=== PATIENT | male | born 1985 | race African-American/Black ===

== ENCOUNTER 2022-07-19 13:17 | Inpatient (IN) | payer OTHER ==
[~2022-07-19] VITALS: Ht 193 cm; Wt 171.9 kg
[2022-07-19] MEDS ORDERED: DIATRIZOATE MEGL/DIATRIZOA SOD 30 ML BTL PO ONE (14:15)
[2022-07-19] MEDS ORDERED: HYDROCHLOROTHIA25 MG PO (14:51)
[2022-07-19] MEDS ORDERED: AMLODIPINE BESY10 MG PO (14:51)
[2022-07-19] MEDS ORDERED: ZESTRIL10 MG PO (14:51)
[2022-07-19] MEDS ORDERED: POTASSIUM CHLORIDE 20 MEQ TAB CR PO STA (14:56)
[2022-07-19] MEDS ORDERED: HYDRALAZINE HCL 20 MG/ML VIAL IV ONE ×2 (15:00→16:30)
[2022-07-19] MEDS ORDERED: HYDRALAZINE HCL 20 MG/ML VIAL ONE (15:11)
[2022-07-19] MEDS ORDERED: POTASSIUM CHLORIDE 20 MEQ TAB CR PO ONE (15:11)
[2022-07-19] MEDS ORDERED: CYCLOBENZAPRINE5 MG PO (16:47)
[2022-07-19] MEDS ORDERED: AMLODIPINE BESYLATE 10 MG TAB ONE (17:28)
[2022-07-19] MEDS ORDERED: AMLODIPINE BESYLATE 10 MG TAB PO ONE (17:30)
[2022-07-19] MEDS ORDERED: NICARDIPINE 20MG/200ML PREMIX 200 ML ONE (18:03)
[2022-07-19] MEDS: NICARDIPINE 20MG/200ML PREMIX 200 ML IV SCH ×5 (18:13→23:00)
[2022-07-19] MEDS ORDERED: SODIUM CHLORIDE FLUSH 10 ML SYR INJ PRN (18:15)
[2022-07-19] MEDS ORDERED: ONDANSETRON HCL INJ 2MG/ML 2ML 2 MG/ML VIAL IV PRN (22:15)
[2022-07-19] MEDS ORDERED: ACETAMINOPHEN 325 MG TAB PO PRN (22:15)
[2022-07-19 23:30] VITALS: BP 155/92
[2022-07-19 23:38] LABS: CREATINE KINASE MB 2.7 ng/mL (0-5.0)
[2022-07-19 23:45] VITALS: BP 143/75
[2022-07-20] VITALS (64 sets, daily range): BP systolic 114–222; BP diastolic 66–145
[2022-07-20] MEDS: NICARDIPINE 20MG/200ML PREMIX 200 ML IV SCH ×6 (00:38→10:44)
[2022-07-20 05:01] LABS: BASOPHILS % 0.3 % (0.0-1.0); EOSINOPHILS # (AUTO) 0.1 (0.0-0.4); HEMATOCRIT 36.8 % (38.2-49.6); HEMOGLOBIN 12.4 g/dL (14.0-18.0); LYMPHOCYTES # (AUTO) 1.5 (1.0-3.2); MEAN CORPUSCULAR HEMOGLOBIN 29.3 pg (28-32); MEAN CORPUSCULAR HGB CONC 33.7 g/dL (31-35); MONOCYTES # (AUTO) 0.5 (0.2-0.8); NEUTROPHILS % 69.3 % (38.7-80.0); PLATELET COUNT 312 x10e3/uL (140-360); RED BLOOD COUNT 4.23 x10e6/uL (4.3-5.7)
[2022-07-20 05:19] LABS: ALBUMIN 3.2 g/dL (3.5-5.0); ALBUMIN/GLOBULIN RATIO 0.9 (0.8-2.0); ANION GAP 12.7 mmol/L (8-16); CREATININE, SERUM 1.01 mg/dL (0.72-1.25)
[2022-07-20 05:25] LABS: POTASSIUM 2.7 mmol/L (3.5-5.1)
[2022-07-20 06:10] LABS: CREATINE KINASE MB 2.5 ng/mL (0-5.0)
[2022-07-20] MEDS: LISINOPRIL 10 MG TAB PO SCH (08:30)
[2022-07-20] MEDS: POTASSIUM CHLORIDE 20 MEQ TAB CR PO SCH ×2 (08:30→10:46)
[2022-07-20] MEDS ORDERED: SPIRONOLACTONE 25 MG TAB PO SCH (09:00)
[2022-07-20] MEDS ORDERED: AMLODIPINE BESYLATE 10 MG TAB PO SCH (09:00)
[2022-07-20] MEDS: CARVEDILOL 12.5 MG TAB PO SCH ×2 (10:45→17:17)
[2022-07-20 14:10] LABS: MAGNESIUM 1.9 MG/DL (1.3-2.1); PHOSPHORUS 2.9 MG/DL (2.3-4.7)
[2022-07-20 14:24] LABS: CREATINE KINASE MB 2.4 ng/mL (0-5.0)
[2022-07-20] MEDS: KCL 20MEQ/.9 SOD CHL 1,000 ML IV SCH (14:38)
[2022-07-20] MEDS: POTASSIUM CHLORIDE 20MEQ/100ML 100 ML IV SCH ×2 (14:38→16:26)
[2022-07-20 16:57] LABS: CLARITY,URINE SL CLOUDY (CLEAR); COLOR,URINE YELLOW (YELLOW); KETONES,URINE NEGATIVE (NEGATIVE); LEUKOCYTE ESTERASE ,URINE NEGATIVE (NEGATIVE); NITRITE,URINE NEGATIVE (NEGATIVE); PROTEIN,URINE DIPSTICK NEGATIVE (NEGATIVE); URINE UROBILINOGEN >=8 mg/dL (0.2 - 1)
[2022-07-20 17:05] LABS: WBC,URINE (MAN) 0-5 /HPF (0-5)
[2022-07-20 17:37] LABS: CREATININE,URINE RANDOM 62.49 mg/dL (63-166); TOTAL PROTEIN, URINE 7.2 mg/dL (1-14)
[2022-07-20] MEDS: NIFEDIPINE CR 30 MG TAB PO SCH (20:35)
[2022-07-21] VITALS (28 sets, daily range): BP systolic 122–163; BP diastolic 73–110
[2022-07-21] MEDS: KCL 20MEQ/.9 SOD CHL 1,000 ML IV SCH ×3 (03:22→17:32)
[2022-07-21 06:45] LABS: BASOPHILS % 0.3 % (0.0-1.0); EOSINOPHILS # (AUTO) 0.2 (0.0-0.4); EOSINOPHILS % 3.1 % (0.0-6.0); HEMATOCRIT 40.3 % (38.2-49.6); HEMOGLOBIN 13.3 g/dL (14.0-18.0); LYMPHOCYTES # (AUTO) 1.5 (1.0-3.2); LYMPHOCYTES % 22.8 % (18.0-39.1); MEAN CORPUSCULAR HEMOGLOBIN 29.2 pg (28-32); MEAN CORPUSCULAR VOLUME 88.6 fL (81-99); MONOCYTES # (AUTO) 0.5 (0.2-0.8); NEUTROPHILS # (AUTO) 4.2 (2.1-6.9); NEUTROPHILS % 66.5 % (38.7-80.0); PLATELET COUNT 308 x10e3/uL (140-360); RED BLOOD COUNT 4.55 x10e6/uL (4.3-5.7); RED CELL DISTRIBUTION WIDTH 12.5 % (11.7-14.4)
[2022-07-21 07:03] LABS: ALBUMIN 3.1 g/dL (3.5-5.0); ALBUMIN/GLOBULIN RATIO 0.8 (0.8-2.0); ANION GAP 11.4 mmol/L (8-16); CREATININE, SERUM 0.98 mg/dL (0.72-1.25); MAGNESIUM 1.8 MG/DL (1.3-2.1); POTASSIUM 3.4 mmol/L (3.5-5.1)
[2022-07-21 07:19] LABS: CHOL/HDL RATIO 7.5 (3.9-4.7)
[2022-07-21 07:39] LABS: THYROID STIMULATING HORMONE 2.592 uIU/mL (0.350-4.940)
[2022-07-21] MEDS: CARVEDILOL 12.5 MG TAB PO SCH ×2 (08:10→16:06)
[2022-07-21] MEDS: LISINOPRIL 10 MG TAB PO SCH (08:10)
[2022-07-21] MEDS: NIFEDIPINE CR 30 MG TAB PO SCH ×2 (08:11→20:02)
[2022-07-21] MEDS: POTASSIUM CHLORIDE 20MEQ/100ML 100 ML IV SCH ×2 (08:11→10:01)
[2022-07-21 14:53] LABS: ALBUMIN 3.1 g/dL (3.5-5.0); ALBUMIN/GLOBULIN RATIO 0.8 (0.8-2.0); ANION GAP 11.6 mmol/L (8-16); CALCIUM 8.1 mg/dL (8.4-10.2); CREATININE, SERUM 1.07 mg/dL (0.72-1.25); POTASSIUM 3.6 mmol/L (3.5-5.1)
[2022-07-22] MEDS: KCL 20MEQ/.9 SOD CHL 1,000 ML IV SCH (02:58)
[2022-07-22 03:00] VITALS: BP 134/90
[2022-07-22 07:00] VITALS: BP 135/93
[2022-07-22 08:12] VITALS: BP 135/93
[2022-07-22] MEDS ORDERED: CARVEDILOL 12.5 MG TAB PO SCH (09:00)
[2022-07-22] MEDS: NIFEDIPINE CR 30 MG TAB PO SCH (09:12)
[2022-07-22] MEDS: LISINOPRIL 10 MG TAB PO SCH (09:13)
[2022-07-22] MEDS ORDERED: ZESTRIL10 MG PO (09:57)
[2022-07-22] MEDS ORDERED: CARVEDILOL25 MG PO (09:57)
[2022-07-22] MEDS ORDERED: NIFEDIPINE ER30 M1 PO (09:57)
== END 2022-07-22 11:49 | disposition home or self-care (01) | DRG 305 ==
LOC: FSED 13:21 → ERHOLD 18:17 → ICU 23:49
PROVIDERS: ADMIT Internal Medicine; ATTEND Internal Medicine
DX: I16.0 Hypertensive urgency (principal); Z68.42 Body mass index [BMI] 45.0-49.9, adult; E87.6 Hypokalemia; I86.1 Scrotal varices; N50.89 Other specified disorders of the male genital organs; N20.0 Calculus of kidney; K76.0 Fatty (change of) liver, not elsewhere classified; E66.01 Morbid (severe) obesity due to excess calories; G47.33 Obstructive sleep apnea (adult) (pediatric); R10.32 Left lower quadrant pain; Z20.822 Contact with and (suspected) exposure to COVID-19
CPT/HCPCS: 36415; 71045; 74176; 76770; 76870; 76882; 80053; 80061; 81001; 81003; 82088; 82550; 82553; 82570; 83735; 84100; 84132; 84156; 84244; 84443; 84484; 84550; 85025; 93005; 93306; 93976; 94799; 96374; 96376; 99252; 99285; J2405; J3480; Q9963